=== PATIENT | female | born 1960 | race Caucasian/White ===

== ENCOUNTER → 2020-04-24 | Day surgery (SDC) | payer BC, OTHER ==
[2020-04-22 16:35] VITALS: BMI 29.8
[~2020-04-24] MED LIST: LACTATED RINGERS 1,000 ML IV SCH; LIDOCAINE 1% (10MG/ML) FOR IV START INTRADERMA ONE; LIDOCAINE 1% INJ 10MG/ML (20 ML MDV) ONE; PROPOFOL 10 MG/ML 20 ML VIAL IV ONE
[2020-04-24 10:16] VITALS: RESP 16; TEMP 97
[2020-04-24 10:23] LABS: Glucose,Whole Blood 85 mg/dL (75-99)
--- NOTE | 2020-04-24 11:01 | P.PCN ---
Date of Procedure: 04/24/20 Procedure(s) Performed: BRIEF HISTORY: Patient is a 59-year-old pleasant female scheduled for an elective colonoscopy as a part of screening for colorectal neoplasia. PROCEDURE PERFORMED: Colonoscopy. PREOPERATIVE DIAGNOSIS: Screening for colon cancer. IV sedation per Anesthesia. PROCEDURE: After informed consent was obtained, the patient, was brought into the endoscopy unit. IV sedation was administered by Anesthesia under continuous monitoring. Digital rectal examination was normal. Initially the Olympus CF-160 flexible video colonoscope was then inserted in the rectum, gradually advanced into the cecum without any difficulty. Careful examination was performed as the scope was gradually being withdrawn. Ileocecal valve and the appendiceal orifice were visualized and appeared normal. Prep was excellent. Mucosa of the cecum, ascending colon, transverse colon, descending colon, sigmoid colon, and rectum appeared normal. Retroflexion was performed in the rectum and no lesions were seen. The patient tolerated the procedure well. IMPRESSION: Normal-appearing colon from rectum to cecum with no evidence of colorectal neoplasia . RECOMMENDATIONS: Findings of this examination were discussed with the patient as well as her family. She was advised to have a repeat screening colonoscopy in 10 years..
[2020-04-24 11:30] VITALS: BP 116/66; PULSE 83
== END ==
LOC: ORWHC2ENDO 09:32
PROVIDERS: ATTEND Internal Medicine Gastroenterology
DX: Z12.11 Encounter for screening for malignant neoplasm of colon (principal); J45.909 Unspecified asthma, uncomplicated; K21.9 Gastro-esophageal reflux disease without esophagitis; D86.9 Sarcoidosis, unspecified; Z88.0 Allergy status to penicillin; Z79.51 Long term (current) use of inhaled steroids; Z79.52 Long term (current) use of systemic steroids; Z79.899 Other long term (current) drug therapy
CPT/HCPCS: J2001; J2704; G0121

== ENCOUNTER → 2024-09-15 | Outpatient (CLI) | payer OTHER ==
--- NOTE | 2024-09-20 10:55 | MM ---
Reason for Exam: Screening (asymptomatic). Last mammogram was performed 5 year(s) and 6 month(s) ago. Patient History: Menarche at age 13. First Full-Term at age 21. Postmenopausal. Hormonal Contraceptives for 4 years from age 42 until age 46. 09/05/2010, Benign Core Biopsy on the left side. Risk Values: Ilana 5 year model risk: 1.6%. NCI Lifetime model risk: 7.3%. Prior Study Comparison: 12/09/2012 Left Diagnostic Mammogram, [facility]. 02/08/2014 Bilateral Screening Mammogram, [facility]. 03/29/2015 Bilateral Screening Mammogram, [facility]. 03/30/2019 Bilateral Screening Mammogram, [facility]. Tissue Density: The breasts are heterogeneously dense, which may obscure small masses. Findings: Analyzed By CAD. There is a biopsy clip in the left breast posteriorly redemonstrated. There is no suspicious new group of microcalcifications or new suspicious mass in either breast. Overall Assessment: Benign, BI-RAD 2 Management: Screening Mammogram of both breasts in 1 year. . Patient should continue monthly self-breast exams. A clinical breast exam by your physician is recommended on an annual basis. This exam should not preclude additional follow-up of suspicious palpable abnormalities. Note on Ilana scores and lifetime risk: 1. A Ilana score greater than 3% is considered moderate risk. If this is the case, consider specialist referral to assess eligibility for a risk reducing agent. 2. If overall lifetime risk for the development of breast cancer is 20% or higher, the patient may qualify for future screening with alternating mammogram and breast MRI. [facility], , 09/18/2024 8:54 AM. Electronically signed and approved by: Marcelo Stephenson M.D.
== END | disposition home or self-care (01) ==
LOC: RADMAMWWP 12:40
PROVIDERS: ATTEND Family Medicine
DX: Z12.31 Encounter for screening mammogram for malignant neoplasm of breast (principal); R92.333 Mammographic heterogeneous density, bilateral breasts; Z78.0 Asymptomatic menopausal state; Z92.0 Personal history of contraception
CPT/HCPCS: 77067